=== PATIENT | male | born 1995 | race Caucasian/White ===

== ENCOUNTER 2018-12-14 20:28 | Emergency (ER) | payer MEDICAID ==
[2018-12-14] MEDS: IBUPROFEN 600 MG TAB PO (20:48)
== END 2018-12-14 22:41 | disposition home or self-care (01) ==
LOC: FTE 20:28
DX: S89.91XA Unspecified injury of right lower leg, initial encounter (principal); W50.0XXA Accidental hit or strike by another person, initial encounter; Y92.322 Soccer field as the place of occurrence of the external cause
CPT/HCPCS: 73562; 99283-25